=== PATIENT | male | born 1965 | race Caucasian/White ===

== ENCOUNTER 2020-10-10 11:52 | Outpatient (RCR) | payer BC, SELFPAY ==
[2020-10-10] MEDS: COVID-19 VACC, MRNA(PFIZER)/PF 30 MCG/0.3 ML SYRINGE IM (18:10)
[2020-10-31] MEDS: COVID-19 VACC, MRNA(PFIZER)/PF 30 MCG/0.3 ML SYRINGE IM (17:53)
== END 2020-10-10 23:59 ==
LOC: IMMUN 11:52
PROVIDERS: PCP Family Medicine; Visit Provider Family Medicine
DX: Z23 Encounter for immunization (principal)
CPT/HCPCS: 0001A; 0002A; 91300

== ENCOUNTER 2020-11-24 10:49 | Emergency (ER) | payer BC, SELFPAY ==
[2020-11-24 10:49] VITALS: BP 151/104; PULSE 75; RESP 14; TEMP 36.7; O2SAT 98; BMI 27.1
--- NOTE | 2020-11-24 11:03 | EKG12_ITS ---
Test Reason : CP Blood Pressure : / mmHG Vent. Rate : 071 BPM Atrial Rate : 071 BPM P-R Int : 156 ms QRS Dur : 094 ms QT Int : 418 ms P-R-T Axes : 038 047 033 degrees QTc Int : 454 ms Normal sinus rhythm Normal ECG Confirmed by AMARJIT ROSALES, JOBY ([id number]), commercial production editor FAVIAN AMAYA ([id number]) on 11/28/2020 10:53:38 AM Referred By: SAEID Confirmed By:JOBY OCASIO MD
--- NOTE | 2020-11-24 11:07 | EDS_ITS ---
HPI History of Present Illness Chief Complaint: Chest Pain Detail of Chief Complaint: Presents with intermittent chest pain for the last week. Informant: patient Onset/Context/Timing Timing: Intermittent Quality: Positive for Burning, Dull and Pressure Location: Substernal and Left Parasternal Current Severity: Mild Worsened By: Nothing Relieved By: Nothing Associated Symptoms: Positive for Nausea and Dyspnea; Negative for Diaphoresis Narrative Patient presents with chest discomfort that started about a week ago. Patient states that initially he thought it might be heartburn so he took his usual [place] and Prevacid but it has not relieved the discomfort. Patient became concerned about it and presents for evaluation. He denies recent illness. He denies recent travel or surgery. Patient has no history of PE or DVT. No significant family history of heart disease noted. Patient is a smoker. Patient also states that the first time he had the pain he did have some numbness in his left hand associated with it but none since. No radiation of the pain into the neck or jaw. Patient has never had a stress test or heart catheterization. CVD Risk Factors: Positive for Smoking PE Risk Factors: Negative for Recent Travel/Surgery and Recent Immobilization TAD Risk Factors: Negative for Marfan's Syndrome, Hypertension and Family History [facility] Medical History (Updated 11/24/20 @ 12:[address] Malik Colunga, ) Asthma Attention deficit disorder (ADD) Erectile dysfunction Home Medications albuterol 2 mcg INHALATION Q4H PRN PRN 11/24/20 [History Last Taken Unknown] budesonide-formoterol 2 puff INHALATION BID 11/24/20 [History Last Taken Unknown] meloxicam 15 mg PO DAILY 11/24/20 [History Last Taken Unknown] sildenafil 100 mg PO DAILY PRN 11/24/20 [History Last Taken Unknown] Allergy/AdvReac Type Severity Reaction Status Date / Time cefdinir Allergy Other Verified 11/24/20 10:56 amoxicillin [From Augmentin] AdvReac Upset Verified 11/24/20 10:56 Stomach clavulanic acid AdvReac Upset Verified 11/24/20 10:56 [From Augmentin] Stomach Family History Other Colon cancer Social History Smoking Status: Current every day smoker ROS ROS ED Review of Systems ROS Unobtainable: other Constitutional Constitutional ED: Reports lethargy; Denies chills, fever(s), sweats or weight loss Eyes Eyes: Denies blurry vision, change in vision or diplopia ENT ENT ED: Denies rhinorrhea or sore throat Cardiovascular Cardiovascular: Reports chest pain; Denies orthopnea, palpitations or racing heartbeat Respiratory/Chest Respiratory/Chest: Reports dyspnea and dyspnea on exertion; Denies cough, orthopnea or sputum Gastrointestinal Gastrointestinal: Denies abdominal pain, diarrhea, nausea or vomiting Genitourinary Genitourinary ED: Denies dysuria, hematuria or urinary frequency Musculoskeletal Musculoskeletal: Denies arthralgias, back pain, myalgias or neck pain Integumentary Denies abscess, Abrasions or rash Neurologic Neurologic: Denies headache(s) or weakness Psychiatric Psychiatric: Denies anxiety, depression or suicidal thoughts Endocrine Endocrinology: Denies polydipsia, polyphagia or polyuria Hematologic/Lymphatic Hematologic/Lymphatic: Denies easy bleeding, easy bruising or lymphadenopathy Allergic/Immunologic Allergic/Immunologic ED: Denies mouth swelling, tongue swelling or urticaria EXAM Physical Exam Const Vital Signs: 11/24/20 10:49 11/24/20 11:10 Temperature 98.1 F Temperature Source Temporal Pulse Rate 75 Respiratory Rate 14 Respiratory Effort Normal Non-Labored Respiratory Pattern Normal Blood Pressure 151/104 H Blood Pressure Mean 119 Pulse Ox 98 98 Oxygen Delivery Method Room Air Room Air Positive well nourished and well developed General Appearance ED: well developed and NAD HEENT Reports TM's clear and moist mucous membranes normocephalic and atraumatic; Negative for trauma or tenderness Tympanic Membrane ED: Yes TM's clear Eyes PERRL and EOMs intact bilaterally General Eye ED: Negative for pale conjunctiva or scleral icterus Neck no lymphadenopathy, supple and no JVD General: Negative for tenderness Chest Wall inspection of chest normal and palpation of chest normal Chest: Negative for tenderness Resp normal respiratory effort and clear to auscultation bilaterally Effort and Inspection: Negative for respiratory distress or pain with movement Auscultation: Negative for rhonchi, wheezes or diminished lung sounds Cardio regular rate, regular rhythm, S1 normal heart sound, S2 normal heart sound and no murmurs Peripheral Pulses: pulses 2+ throughout GI normal to inspection, nondistended, normoactive bowel sounds, soft to palpation, non-tender, non-distended and no masses Back/Spine no CVA tenderness and no thoracic nor lumbar tenderness Extremity normal to inspection General Extremety ED: Negative for edema General Extremity: Negative for edema Neuro oriented x3, CN's II-XII intact bilaterally, no sensory deficits noted and gait normal Sensorium / Orientation: awake, alert, oriented to person, oriented to place and oriented to time Motor Exam: strength 5/5 throughout and strength abnormal Psych mental status grossly normal Skin no rashes or lesions noted and no wounds Heart Score History: Moderately Suspicious ECG: Normal Age: >45 - <65 years Risk Factors: 1 or 2 Risk Factors Troponin: </= Normal Limit Score: 3 MDM MDM MDM Narrative Medical decision making narrative: Results discussed with patient at this point he has a heart score of 3. I recommended admission for stress testing however he states that due to some job concerns he does not want to be admitted at this time. He understands that I cannot rule out coronary artery disease as the cause of his pain. Used shared decision making patient would like to follow-up with his patient primary care physician and obtain an outpatient stress test. He understands that he needs to return if worsening pain, increasing shortness of breath, or condition should worsen anyway. Lab Data Attestation: I reviewed the patient's lab results. Labs: Laboratory Results - last 24 hr 11/24/20 11/24/20 11/24/20 10:55 10:55 10:55 WBC 11.4 H RBC 5.36 Hgb 15.9 Hct 47.5 MCV 88.6 MCH 29.7 MCHC 33.5 RDW Std Deviation 44.7 H RDW Coeff of [place] 13.6 Plt Count 281 MPV 11.1 Immature Gran % (Auto) 0.400 Neut % (Auto) 61.8 Lymph % (Auto) 28.8 Stanley % (Auto) 5.6 Eos % (Auto) 2.6 Baso % (Auto) 0.8 Absolute Neuts (auto) 7.1 Absolute Lymphs (auto) 3.28 Nucleated RBC % 0 D-Dimer Quant (PE/DVT) 0.35 Sodium 139 Potassium 3.6 Chloride 106 Carbon Dioxide 30.0 Anion Gap 3 L BUN 10 Creatinine 1.00 Estim Creat Clear Calc 98.18 Est GFR (MDRD) Af Amer 100 Est GFR (MDRD) Non-Af 83 BUN/Creatinine Ratio 10.0 Glucose 115 H Calcium 8.7 Troponin I < 0.015 Radiography Chest X-Ray - ED: 1 View, Read by ED Physician and Read by Radiologist Diagnostic Testing: Radiology Impression Chest X-Ray 11/24/20 11:15 IMPRESSION: Hyperinflation with decreased markings in the lungs suggestive of emphysematous changes. Electronically Signed: Ubaldo Boykin MD at 11:30 EDT , Service support , No acute disease process noted. Radiology in agreement however they did note some hyperinflation and signs of emphysema. EKG Initial EKG: Attestation: I personally reviewed and interpreted this EKG as follows: Interpretation: Sinus Rhythm Comments: Sinus rhythm with a ventricular rate of 71 bpm with no acute ST segment changes noted. Prior EKG tracings: available for review Prior: Unchanged Discharge Plan Triage Chief Complaint: Chest Pain ED Provider: Malik Colunga Dx/Rx/DC Orders Clinical Impression: Chest pain Instructions: ED Chest Pain, Uncertain Cause Prescriptions: No Action meloxicam 15 mg Tablet 15 mg PO DAILY RF: 0 sildenafil 100 mg Tablet 100 mg PO DAILY PRN (Reason: Erectile Dysfunction) RF: 0 albuterol 90 mcg/actuation Aerosol 2 mcg INHALATION Q4H PRN PRN (Reason: sob) RF: 0 budesonide-formoterol 80-4.5 mcg/actuation Hfa Aerosol Inhaler 2 puff INHALATION BID RF: 0 Primary Care Provider: Moe Gutiérrez Referrals: Moe Gutiérrez MD [Primary Care Provider] - As soon as possible Disposition Disposition: Home, self care
[2020-11-24 11:10] VITALS: O2SAT 98
[2020-11-24 11:10] LABS: Absolute Lymphocyte Count 3.28 X10^3/uL (0.83-4.51); Absolute Neutrophil Count 7.1 X10^3/uL (2.0-7.7); Basophil# 0.09 X10^3/uL; Basophil% 0.8 % (0-1); Eosinophils% 2.6 % (0-5); Hematocrit 47.5 % (40-54); Hemoglobin 15.9 g/dL (13.0-16.5); Lymphocyte # 3.28 X10^3/ul (0.83-4.51); Lymphocyte % 28.8 % (19-41); Mean Corp Hgb Conc 33.5 g/dL (32-36); Mean Corpuscular Hgb 29.7 pg (27.0-32.0); Mean Corpuscular Volume 88.6 fL (80-94); Mean Platelet Vol. 11.1 fl (6.2-12.0); Monocyte# 0.64 X10^3/uL; Monocyte% 5.6 % (0-10); NRBC Flagged by Analyzer 0 % (0-5); Neutrophil # 7.05 X10^3/uL (2.7-7.7); Neutrophil % 61.8 % (47-70); Platelet Count 281 K/mm3 (150-450); RBC Distribution Width CV 13.6 % (11.6-14.6); RBC Distribution Width SD 44.7 fl (35.1-43.9); Red Blood Count 5.36 M/mm3 (4.6-6.2); White Blood Count 11.4 K/mm3 (4.4-11.0)
--- NOTE | 2020-11-24 11:15 | RAD_ITS ---
STUDY: X-RAY CHEST REASON FOR EXAM: Male, 55 years old. Chest pain TECHNIQUE: Single AP portable view of the chest. COMPARISON: None. FINDINGS: EKG electrodes are seen. Hyperinflation. Decreased bronchovascular markings in the lungs suggestive of emphysematous change. There is no demonstrated pleural abnormality. Normal size heart. Normal mediastinum and eugenia. Normal visualized pulmonary arteries. Normal visualized aortic arch and descending thoracic aorta. There are diffuse degenerative changes of the visualized thoracic spine. Normal visualized ribs, clavicles, and shoulders. There is no demonstrated abnormality of the visualized soft tissue structures of the upper abdomen. RAD/Chest 1 View (Portable) IMPRESSION: Hyperinflation with decreased markings in the lungs suggestive of emphysematous changes. Electronically Signed: Ubaldo Boykin MD at 11:30 EDT , Service support ,
[2020-11-24] MEDS: Aspirin 81 MG TAB.CHEW 324 MG PO (11:17)
[2020-11-24] MEDS: 0.9% Normal Saline 1,000 ML 150 ML IV (11:17)
[2020-11-24 11:28] LABS: Anion Gap 3 (5-15); BUN 10 mg/dL (7-18); Calcium,Total 8.7 mg/dL (8.5-10.1); Chloride 106 mmol/L (98-107); EST Glomerular Filtration Rate 83 mL/min (>60); Est Glom Filt Rate - Afr Amer 100 mL/min (>60); Estimated Creatinine Clearance 98.18 ml/min; Glucose 115 mg/dL (74-106); Potassium 3.6 mmol/L (3.5-5.1); Sodium Level 139 mmol/L (136-145)
[2020-11-24 11:29] LABS: D-Dimer Quantitative (DVT/PE) 0.35 FEU/ug/m (0.27-0.49)
[2020-11-24 12:24] VITALS: PULSE 74
== END 2020-11-24 12:25 | disposition home or self-care (01) ==
PROVIDERS: Emergency Provider Emergency Medicine; PCP Family Medicine
DX: R07.9 Chest pain, unspecified (principal); F17.200 Nicotine dependence, unspecified, uncomplicated; Z79.1 Long term (current) use of non-steroidal anti-inflammatories (NSAID)
CPT/HCPCS: 71045; 80048; 84484; 85025; 85379; 93005; 96360; 99285; J7030; A4216

== ENCOUNTER 2021-08-21 10:41 | Outpatient (CLI) | payer BC, SELFPAY | END 2021-08-21 23:59 | disposition short-term general hospital (02) | LOC: LABSPEC 10:42 | PROVIDERS: PCP Family Medicine; Visit Provider Physician Assistant Surgical | DX: U07.1 COVID-19 (principal) | CPT/HCPCS: 87635; U0003; U0005 ==